=== PATIENT | female | born 1990 | race Caucasian/White ===

== ENCOUNTER 2025-01-21 08:53 | Outpatient (AMB) | payer BC, SELFPAY ==
--- OUTSIDE RECORDS SUMMARY | 2025-01-10 11:30 | XMS_ITS | Encounter Summary ---
Author Organization [facility] Address [address] [place] [address] Care Team Providers Care Information Operator Name Role Phone Rafita Cook APRN Primary Care Provider [phone] Reason for Visit * Diagnostic Imaging (Emergency) - Closed Specialty Diagnoses / Procedures Referred By Ivana titus Referred To Contact Diagnoses Lumbar radiculopathy Procedures MRI Lumbar spine w/o contrast Rudolph Asher MD [address] [place] [address] Phone: tel: fax: Referral ID Status Reason Start Date Expiration Date Visits Re quested Visits Authorized [id number] Closed 12/25/2024 12/26/2025 1 1 Encounter Details Date Type Department Care Team (Latest Contact Info) Description 01/10/2025 11:30 AM EDT Ancillary Procedure [facility] [address] [place] [phone] Lumbar radiculopathy Social History Tobacco Use Types Packs/Day Years Used Date Smoking Tobacco: Never Smokeless Tobacco: Never Alcohol Use Standard Drinks/Week Comments Not Currently 1 (1 standard drink = 0.6 oz pure alcohol) Most weeks none, approximately 1x/month 2-4 drinks Comments Unknown Sex and Gender Information Value Date Recorded Sex Assigned at Female 12/27/2023 9:26 AM EDT Legal Sex Female 9:25 AM EDT Gender Identity Female 12/27/2023 9:26 AM EDT Sexual Orientation Heterosexual (straight) 12/26 9:44 PM EDT documented as of this encounter Plan of Treatment Upcoming Encounters Date Type Department Care Team (Late st Contact Info) Description 01/30/2025 1:00 PM EDT Procedure visit [facility] Department of Nephrology and Access Surgery [place] [address] [place] [phone] Rudolph Asher MD [address] [place] [address] 02/13/2025 3:00 PM EDT Office Visit [facility] Department of Internal Medicine [place] [address] [place] [phone] Rafita Cook APRN [address] [place] [address] 02/18/2025 1:00 PM EDT Office Visit [facility] Department of Pain [place] [id number] [place] [phone] Rudolph Asher MD [address] [place] [address] documented as of this encounter Procedures Procedure Name Priority Date/Time Associated Diagnosis Comments MRI LUMBAR SPINE W/O CONTRAST STAT 01/10/2025 12:03 PM EDT Lumbar radiculopathy documented in this encounter Results * MRI Lumbar spine w/o contrast (01/10/2025 12:03 PM EDT) Anatomical Region Laterality Modality L-spine Magnetic Resonan ce 01/10/2025 12:0 5 PM EDT Impressions 01/10/2025 12:17 PM EDT The mild to moderate L4-L5 disc herniation demonstrated on prior exam is now substantially larger, with severe central stenosis and right lateral recess compromise. No new abnormalities at the other lumbar levels. A Significant finding has been communicated to Radiology Pyrometallurgical Engineer for provider notification via the [employer] Findings Application on 01/10/2025 12:17 PM, Message ID [id number]. Narrative 01/10/2025 12:17 PM EDT TECHNIQUE: MRI of lumbar spine without contrast. Comparison 12/25/2024 x-rays, MRI 07/17/2024. FINDINGS: L4-L5 disc herniation demonstrated on the June MRI is now substantially larger, with extruded disc material occupying much of the cross-sectional diameter of the spinal canal at the disc level, and extending distally in the midline and right central plane almost to the inferior L5 endplate level. Normal lumbar alignment is maintained. Normal vertebral body heights and signal. Small incidental L1 hemangioma is unchanged. Conus is normal. Cauda equina normal except for compression at the L4-L5 level. Lower thoracic and upper lumbar disc levels are normal. Slight loss of disc height at L3-L4, mild left central disc protrusion. No stenosis. Moderate disc space narrowing at L4-L5. Normal facet joints. Foramina are not significantly narrowed. Normal disc height at L5-S1. Small central disc protrusion. No stenosis. Paraspinal soft tissues are normal. Procedure Note Juni Stevens MD - 01/10/2025 TECHNIQUE: MRI of lumbar spine without contrast. Comparison 12/25/2024 x-rays, MRI 07/17/2024. FINDINGS: L4-L5 disc herniation demonstrated on the June MRI is now substantiallylarger, with extruded disc material occupying much of the cross-sectionaldiameter of the spinal canal at the disc level, and extending distally inthe midline and right central plane almost to the inferior L5 endplate level. Normal lumbar alignment is maintained. Normal vertebral body heights andsignal. Small incidental L1 hemangioma is unchanged. Conus is normal. Cauda equina normal except for compression at the L4-W6axlez. Lower thoracic and upper lumbar disc levels are normal. Slight loss of disc height at L3-L4, mild left central disc protrusion. Nostenosis. Moderate disc space narrowing at L4-L5. Normal facet joints. Foramina arenot significantly narrowed. Normal disc height at L5-S1. Small central disc protrusion. No stenosis. Paraspinal soft tissues are normal. IMPRESSION: The mild to moderate L4-L5 disc herniation demonstrated on prior exam isnow substantially larger, with severe central stenosis and right lateralrecess compromise. No new abnormalities at the other lumbar levels. A Significant finding has been communicated to Radiology Pyrometallurgical Engineer forprovider notification via the [employer] FindingsApplication on 01/10/2025 12:17 PM, Message ID [id number]. Rudolph Asher MD IMG MRI ORDERABLES Final Result documented in this encounter Visit Diagnoses Diagnosis Lumbar radiculopathy Thoracic or lumbosacral neuritis or radiculitis, unspecified documented in this encounter Care Teams Information Operator Relationship Specialty Start Date End Date Rafita Cook APRN [address] [place] [address] PCP - General Internal Medicine 07/24/24 documented as of this encounter
[2025-01-21 09:04] VITALS: BMI 30.9
--- NOTE | 2025-01-21 09:04 | HO.SPINEOV ---
Vital Signs 01/21/25 09:04 Height 5 ft 4 in Weight 180 lb BMI 30.9 Intake Visit Reasons: LBP L4-L5 Intake Note: Ms. Dixon is here today c/o Low back pain that radiate to buttocks, hips and right leg, causing numbness. 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 Required: No Allergies No Known Allergies Allergy (Verified 01/21/25 09:05) Physical Exam Vital Signs: BMI result Body Mass Index 30.9 Assessment & Plan Assessment & Plan (1) Lumbar disc herniation: Code(s): M51.26 - Other intervertebral disc displacement, lumbar region Category: Medical Plan This is a very nice 35-year-old female who has had on and off back issues since she was a teenager, who had a known smaller disc herniation/disc bulge at L4-5 which she was treating conservatively this year with things like physical therapy, and it was otherwise at her baseline until sometime in November when she was mowing her lawn and noticed the next day an intense pain in her back as well as numbness of her right leg. This ultimately transition to severe bilateral lower extremity nerve pain, right greater than left that goes all the way down to her feet. At 1 point during the process she was completely incapacitated by the pain and unable to walk. She has seen a surgeon in [place], has been to a pain management center, undergone physical therapy. She even underwent an injection. Nothing seems to be helping at this point. She is considering surgery with Dr. Thompson, but wanted a 2nd opinion so came to see us today. She tells me that the pain is intense but becomes more manageable with gabapentin. She is also taking high dose Motrin. Walking still continues to be a significant issue, she is very unsteady on her feet, has tremendous difficulty going up and downstairs. She has had some vaginal numbness along the right side and on the right side of her buttock. She reports 1 episode of borderline incontinence with stool, but generally is able to control it. Similarly with her bladder there some urgency there but she has never had barney incontinence where she was unable to sense it or control it. The pain has been so intense that she has gone to the point of buying a wheelchair if she has to go longer distances. She had an MRI done showing significant increase in the size of the herniated disc at L4-5. PMH: She is otherwise healthy denies any systemic disease. She has had wisdom teeth removal and tonsillectomy. Social hx: She has not smoke, drink use any recreational drugs Medications: Gabapentin, sertraline ibuprofen and Zepbound Allergies: None Physical exam: Awake alert oriented, she is uncomfortable getting up on the examining table by herself, she is unsteady and appears to be in pain. Walking down the hallway she has an antalgic gait in his unsteady with tandem gait walking. She has pain with hip flexion and positive straight leg raise at about 30 degrees. Motor examination reveals weakness of her right tibialis and her right peroneus longus/brevis. Reflexes 2+ at the patella but absent at the Achilles bilaterally. Imaging review: Lumbar MRI done at an outside facility, as well as standing flexion extension x-rays reviewed. This shows a large herniated disc fragment at L4-5. It appears to have herniated out from the left side and there is a small distal fragment down behind the right side of the L5 vertebral body as well. It completely fills the spinal canal and obliterates all the passing nerve roots. Impression: 35-year-old female presents with a large herniated disc at L4-5 which is completely filling the spinal canal, giving her back pain, bilateral lower extremity pain right greater than left with weakness of her right foot, pain and instability with walking as well as some early signs of sacral nerve root impingement expressing themselves as vaginal numbness. No barney incontinence. She is able to sense when she has to go to the bathroom, and can empty her bladder. We reviewed her imaging together, I expressed my concern her that this would need surgery to fix given the amount of pain she is in as well as the signs of neurological weakness and some borderline cauda equina type symptoms. She had x-rays done at the doctor she saw jessi Putnam and there maybe some slight translation of L4 and L5 with standing and flexion. It is possible she may need more than just a simple microdiskectomy, which would be the traditional treatment of this. I am going to review the images with Dr. Coto to see if he thinks this needs fusion or if we can just treat it with removing the large herniated fragment. I will call her and update her with the plan once I talked to him. We also talked about the fact that if she develops true cauda equina symptoms she needs to go to the emergency room to be treated with with surgical intervention. Thank you for allowing us to care for your patient. The total time spent with this visit with this patient was 45 minutes reviewing history, physical exam, lumbar imaging review, and implementation of treatment plan or further diagnostic testing Niels Coto MD,PhD [facility] [place] Coding Level of Care Code New Pt Level 4 (77562) Diagnoses Lumbar disc herniation M51.26
--- OUTSIDE RECORDS SUMMARY | 2025-01-21 10:17 | XMS_ITS | Encounter Summary ---
Author Organization [facility] Address [address] [place] [address] Care Team Providers Care Eastern Philosophy Professor Name Role Phone Rafita Cook APRN Primary Care Provider [phone] Encounter Details Date Type Department Care Team (Late st Contact Info) Description 03/15/2024 Scanned Document [facility] Department of Internal Medicine [place] [address] [place] [phone] Joyce RafitaSHITAL [address] [place], [place] [phone] Social History Tobacco Use Types Packs/Day Years [...] Description 01/30/2025 1:00 PM EDT Procedure visit [facility] Department of Nephrology and Access Surgery [place] [address] [place] [phone] Rudolph Asher MD [address] [place] [address] 02/13/2025 3:00 PM EDT Office Visit [facility] Department of Internal Medicine [place] [address] [place] [address] Rafita Cook APRN [address] [place] [address] 02/18/2025 1:00 PM EDT Office Visit [facility] Department of Pain [address] [phone] Rudolph Asher MD [address] [place] [address] documented as of this encounter Visit Diagnoses Not on filedocumented in this encounter Care Teams Eastern Philosophy Professor Relationship Specialty Start Date End Date Rafiat Cook APRN [address] [place] [address] PCP - General Internal Medicine 07/24/24 documented as of this encounter
--- OUTSIDE RECORDS SUMMARY | 2025-01-21 10:17 | XMS_ITS | Encounter Summary ---
Author Organization [facility] Address [address] [place] [address] Care Team Providers Care Death Surveys Coder Name Role Phone Rafita Cook APRN Primary Care Provider [phone] Encounter Details Date Type Department Care Team (Late st Contact Info) Description 10/26/2024 Scanned Document [facility] Department of Pain [address] [phone] Rudolph Asher MD [address] [place] [address] Social History Tobacco Use Types Packs/Day Years [...] Physicians Department of Nephrology and Access Surgery [address] [phone] Rudolph Asher MD [address] [place] [address] 02/13/2025 3:00 PM EDT Office Visit [facility] Department of Internal Medicine [address] [phone] Rafita Cook APRN [address] [place] [address] 02/18/2025 1:00 PM EDT Office Visit [facility] Department of Pain [address] [phone] Rudolph Asher MD [address] [place] [address] documented as of this encounter Visit Diagnoses Not on filedocumented in this encounter Care Teams Death Surveys Coder Relationship Specialty Start Date End Date Rafita Cook APRN [address] [place] [address] PCP - General Internal Medicine 07/24/24 documented as of this encounter
--- OUTSIDE RECORDS SUMMARY | 2025-01-21 10:17 | XMS_ITS | Encounter Summary ---
Author Organization [facility] Address [address] [place] [address] Care Team Providers Care Plug Shaper Hand Name Role Phone Rafita Cook APRN Primary Care Provider [phone] Encounter Details Date Type Department Care Team (Late Contact Info) Description 01/10/2025 Telephone [facility] Department of Orthopaedics & Sports Medicine [address] [phone] Rudolph Asher MD [address] [place] [address] Social History Tobacco Use Types Packs/Day Years [...] Encounters Date Type Department Care Team (Late Contact Info) Description 01/30/2025 1:00 PM EDT Procedure visit [facility] Department of Nephrology and Access Surgery [address] [phone] Rudolph Asher MD [address] [place] [address] 02/13/2025 3:00 PM EDT Office Visit [facility] Department of Internal Medicine [place] [address] [place] [address] Rafita Cook APRN [address] [place] [address] 02/18/2025 1:00 PM EDT Office Visit [facility] Department of Pain [address] [phone] Rudolph Asher MD [address] [place] [address] documented as of this encounter Visit Diagnoses Not on filedocumented in this encounter Care Teams Plug Shaper Hand Relationship Specialty Start Date End Date Rafita Cook APRN [address] [place] [address] PCP - General Internal Medicine 07/24/24 documented as of this encounter
--- OUTSIDE RECORDS SUMMARY | 2025-01-21 10:17 | XMS_ITS | Encounter Summary ---
Author Organization [facility] Address [address] [place] [address] Care Team Providers Care Corking Machine Operator Name Role Phone Rafita Cook APRN Primary Care Provider [phone] Encounter Details Date Type Department Care Team (Late st Contact Info) Description 07/13/2024 Scanned Document [facility] Department of Internal Medicine [place] [address] [place] [phone] Joyce RafitaSHITAL [address] [place], [place] [phone] Social History Tobacco Use Types Packs/Day Years [...] Physicians Department of Nephrology and Access Surgery [place] [address] [place] [phone] Rudolph Asher MD [address] [place] [address] 02/13/2025 3:00 PM EDT Office Visit [facility] Department of Internal Medicine [place] [address] [place] [address] Rafita Cook APRN [address] [place] [address] 02/18/2025 1:00 PM EDT Office Visit [facility] Department of Pain [address] [phone] Rudolph Asher MD [address] [place] [address] documented as of this encounter Visit Diagnoses Not on filedocumented in this encounter Care Teams Corking Machine Operator Relationship Specialty Start Date End Date Rafita Cook APRN [address] [place] [address] PCP - General Internal Medicine 07/24/24 documented as of this encounter
--- OUTSIDE RECORDS SUMMARY | 2025-01-21 10:17 | XMS_ITS | Encounter Summary ---
Author Organization [facility] Address [address] [place] [address] Care Team Providers Care Agriscience Instructor Name Role Phone Rafita Cook APRN Primary Care Provider [phone] Encounter Details Date Type Department Care Team (Late st Contact Info) Description 11/01/2024 Scanned Document [facility] Department of Pain [address] [phone] Rudolph Asher MD [address] [place] [address] Social History Tobacco Use Types Packs/Day Years [...] Physicians Department of Nephrology and Access Surgery [address] [phone] Ruodlph Asher MD [address] [place] [address] 02/13/2025 3:00 PM EDT Office Visit [facility] Department of Internal Medicine [address] [phone] Rafita Cook APRN [address] [place] [address] 02/18/2025 1:00 PM EDT Office Visit [facility] Department of Pain [address] [phone] Rudolph Asher MD [address] [place] [address] documented as of this encounter Visit Diagnoses Not on filedocumented in this encounter Care Teams Agriscience Instructor Relationship Specialty Start Date End Date Rafita Cook APRN [address] [place] [address] PCP - General Internal Medicine 07/24/24 documented as of this encounter
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
--- OUTSIDE RECORDS SUMMARY | 2025-01-21 10:17 | XMS_ITS | Encounter Summary ---
Author Organization [facility] Address [address] [place] [address] Care Team Providers Care Reducing Machine Operator Name Role Phone Rafita Cook APRN Primary Care Provider [phone] Encounter Details Date Type Department Care Team (Late st Contact Info) Description 12/04/2024 Scanned Document [facility] Department of Pain [address] [address] Rudolph Asher MD [address] [place] [address] Social History Tobacco Use Types Packs/Day Years [...] [facility]icians Department of Nephrology and Access Surgery [address] [phone] Rudolph Asher MD [address] [place] [address] 02/13/2025 3:00 PM EDT Office Visit [facility] Department of Internal Medicine [address] [address] Rafita Cook APRN [address] [place] [address] 02/18/2025 1:00 PM EDT Office Visit [facility] Department of Pain [address] [phone] Rudolph Asher MD [address] [place] [address] documented as of this encounter Visit Diagnoses Not on filedocumented in this encounter Care Teams Reducing Machine Operator Relationship Specialty Start Date End Date Rafita Cook APRN [address] [place] [address] PCP - General Internal Medicine 07/24/24 documented as of this encounter
--- OUTSIDE RECORDS SUMMARY | 2025-01-21 10:17 | XMS_ITS | Encounter Summary ---
Author Organization [facility] Address [address] [place] [address] Care Team Providers Care Registered Respiratory Technician Name Role Phone Rafita Cook APRN Primary Care Provider [phone] Encounter Details Date Type Department Care Team (Late st Contact Info) Description 10/09/2024 Scanned Document [facility] Department of Internal Medicine [place] [address] [place] [phone] Joyce RafitaSHITAL [address] [place], [place] [phone] Social History Tobacco Use Types Packs/Day Years [...] Physicians Department of Nephrology and Access Surgery [place] [address] [place] [phone] Rudolph Asher MD [address] [place] [address] 02/13/2025 3:00 PM EDT Office Visit [facility] Department of Internal Medicine [place] [address] [place] [address] Rafita Cook APRN [address] [place] [address] 02/18/2025 1:00 PM EDT Office Visit [facility] Department of Pain [address] [phone] Rudolph Asher MD [address] [place] [address] documented as of this encounter Visit Diagnoses Not on filedocumented in this encounter Care Teams Registered Respiratory Technician Relationship Specialty Start Date End Date Rafita Cook APRN [address] [place] [address] PCP - General Internal Medicine 07/24/24 documented as of this encounter
--- OUTSIDE RECORDS SUMMARY | 2025-01-21 10:17 | XMS_ITS | Encounter Summary ---
Author Organization [facility] [place] [facility] Address [address] [place] [address] Care Team Providers Care Ammunition Storage Superintendent Name Role Phone Rafita Cook APRN Primary Care Provider [phone] Encounter Details Date Type Department Care Team (Late st Contact Info) Description 12/28/2024 Scanned Document [facility] Department of Pain [address] [address] Rudolph Asher MD [address] [place] [address] Social History Tobacco Use Types Packs/Day Years [...] Physicians Department of Nephrology and Access Surgery [address] [phone] Ruodlph Asher MD [address] [place] [address] 02/13/2025 3:00 PM EDT Office Visit [facility] Department of Internal Medicine [address] [address] Rafita Cook APRN [address] [place] [address] 02/18/2025 1:00 PM EDT Office Visit [facility] Department of Pain [address] [phone] Rudolph Asher MD [address] [place] [address] documented as of this encounter Visit Diagnoses Not on filedocumented in this encounter Care Teams Ammunition Storage Superintendent Relationship Specialty Start Date End Date Rafita Cook APRN [address] [place] [address] PCP - General Internal Medicine 07/24/24 documented as of this encounter
--- OUTSIDE RECORDS SUMMARY | 2025-01-21 10:17 | XMS_ITS | Encounter Summary ---
Author Organization [facility] Address [address] [place] [address] Care Team Providers Care Semiconductor Technician Name Role Phone Rafita Cook APRN Primary Care Provider [phone] Encounter Details Date Type Department Care Team (Late st Contact Info) Description 10/15/2024 Scanned Document [facility] Department of Internal Medicine [place] [address] [place] [phone] Joyce RafitaSHITAL [address] [place], [place] [phone] Social History Tobacco Use Types Packs/Day Years [...] Physicians Department of Nephrology and Access Surgery [place] [address] [place] [phone] Rudolph Asher MD [address] [place] [address] 02/13/2025 3:00 PM EDT Office Visit [facility] Department of Internal Medicine [place] [address] [place] [address] Rafita Cook APRN [address] [place] [address] 02/18/2025 1:00 PM EDT Office Visit [facility] Department of Pain [address] [phone] Rudolph Asher MD [address] [place] [address] documented as of this encounter Visit Diagnoses Not on filedocumented in this encounter Care Teams Semiconductor Technician Relationship Specialty Start Date End Date Rafita Cook APRN [address] [place] [address] PCP - General Internal Medicine 07/24/24 documented as of this encounter
--- OUTSIDE RECORDS SUMMARY | 2025-01-21 10:17 | XMS_ITS | Encounter Summary ---
Author Organization [facility] [place] [facility] Address [address] [place] [address] Care Team Providers Care Practice Managers Name Role Phone Rafita Cook APRN Primary Care Provider [phone] Encounter Details Date Type Department Care Team (Late st Contact Info) Description 09/13/2024 Scanned Document [facility] Department of Internal Medicine [place] [address] [place] [phone] Joyce RafitaSHITAL [address] [place], [place] [phone] Social History Tobacco Use Types Packs/Day Years [...] Physicians Department of Nephrology and Access Surgery [place] [address] [place] [phone] Rudolph Asher MD [address] [place] [address] 02/13/2025 3:00 PM EDT Office Visit [facility] Department of Internal Medicine [place] [address] [place] [address] Rafita Cook APRN [address] [place] [address] 02/18/2025 1:00 PM EDT Office Visit [facility] Department of Pain [address] [phone] Rudolph Asher MD [address] [place] [address] documented as of this encounter Visit Diagnoses Not on filedocumented in this encounter Care Teams Practice Managers Relationship Specialty Start Date End Date Rafita Cook APRN [address] [place] [address] PCP - General Internal Medicine 07/24/24 documented as of this encounter
--- OUTSIDE RECORDS SUMMARY | 2025-01-21 10:17 | XMS_ITS | Encounter Summary ---
Author Organization [facility] Address [address] [place] [address] Care Team Providers Care Hoisting Pile Driving Engineer Name Role Phone Rafita Cook APRN Primary Care Provider [phone] Encounter Details Date Type Department Care Team (Late st Contact Info) Description 11/23/2024 Scanned Document [facility] Department of Nephrology and Access Surgery [address] [phone] Rudolph Asher MD [address] [place] [address] Social History Tobacco Use Types Packs/Day Years [...] Physicians Department of Nephrology and Access Surgery [address] [phone] Rudolph Asher MD [address] [place] [address] [phone] 02/13/2025 3:00 PM EDT Office Visit [facility] Department of Internal Medicine [place] [address] [place] [address] Rafita Cook APRN [address] [place] [address] 02/18/2025 1:00 PM EDT Office Visit [facility] Department of Pain [address] [phone] Rudolph Asher MD [address] [place] [address] documented as of this encounter Visit Diagnoses Not on filedocumented in this encounter Care Teams Hoisting Pile Driving Engineer Relationship Specialty Start Date End Date Rafita Cook APRN [address] [place] [address] PCP - General Internal Medicine 07/24/24 documented as of this encounter
--- OUTSIDE RECORDS SUMMARY | 2025-01-21 10:17 | XMS_ITS | Encounter Summary ---
Author Organization [facility] Address [address] [place] [address] Care Team Providers Care Sales Management Trainee Name Role Phone Rafita Cook APRN Primary Care Provider [phone] Encounter Details Date Type Department Care Team (Late st Contact Info) Description 07/12/2024 Scanned Document Rod [facility] Department of Internal Medicine [place] [address] [place] [phone] [facility] [address] [place], [place] [phone] Social History Tobacco Use Types Packs/Day Years [...] Physicians Department of Nephrology and Access Surgery [place] [address] [place] [phone] Rudolph Asher MD [address] [place] [address] 02/13/2025 3:00 PM EDT Office Visit [facility] Department of Internal Medicine [place] [address] [place] [address] Rafita Cook APRN [address] [place] [address] 02/18/2025 1:00 PM EDT Office Visit [facility] Department of Pain [address] [phone] Rudolph Asher MD [address] [place] [address] documented as of this encounter Visit Diagnoses Not on filedocumented in this encounter Care Teams Sales Management Trainee Relationship Specialty Start Date End Date Rafita Cook APRN [address] [place] [address] PCP - General Internal Medicine 07/24/24 documented as of this encounter
--- OUTSIDE RECORDS SUMMARY | 2025-01-21 10:17 | XMS_ITS | Clinical Summary ---
Author Organization [facility] Address [address] [facility] Rose Garcia tresa [address] [place] [address] Care Team Providers Care Gum Scoring Machine Operator Name Role Phone Unavailable Primary Care Provider Unavailabl e Social History Tobacco Use Types Packs/Day Years Used Date Smoking Tobacco: Never Assessed Comments Unknown Sex and Gender Information Value Date Recorded Sex Assigned at Female 01/14/2025 3:15 PM EDT Legal Sex Female 3:12 PM EDT Gender Identity Female 01/14/2025 3:15 PM EDT Sexual Orientation Unknown 01/14/2025 3: 15 PM EDT Plan of Treatment Upcoming Encounters Date Type Department Care Team (Late st Contact Info) Description 01/30/2025 3:00 PM EDT Office Visit [facility] Neurosurgery [address] [phone] Eros Case MD [address] [place] [phone] Health Maintenance Due Date Last Done Comments HIV Screening 1990 MMR Vaccines (1 of 1 - Stand coby series) 01/20/1989 Varicella Vaccines (1 of 2 - 13+ 2-dose series) 01/20/2001 Hepatitis C Screening 01/20/2006 DTaP/Tdap/Td Vaccines (1 - Tdap) 01/20/2007 Hepatitis B Vaccines (1 of 3 - 19+ 3-dose series) 01/20/2007 Pap Smear 01/20/2009 HPV Vaccines (1 - 3-dose SCD M series) 01/20/2015 Cervical Cancer Screening 01/20/2018 HPV/Cotest 01/20/2018 Depression Screening 05/02/2024 COVID-19 Vaccine ( - 2023-2 5 season) 2024 Influenza Vaccine (#1) 2024 01/11/2024 Lipid Panel 06/27/2029 06/27/2024 HIB Vaccines Aged Out No longer eligi ble based on patient's age to complete this topic Hepatitis A Vaccines Aged Out No long er eligible based on patient's age to complete this topic IPV Vaccines Aged Out No longer eligi ble based on patient's age to complete this topic Meningococcal B Vaccine Aged Out No l onger eligible based on patient's age to complete this topic Meningococcal Vaccine Aged Out No marlyn andrew eligible based on patient's age to complete this topic Pneumococcal Vaccine: Pediat rics (0 to 5 Years) and At-Risk Patients (6 to 49 Years) Aged Out No longer eligi ble based on patient's age to complete this topic Rotavirus Vaccines Aged Out No longer eligible based on patient's age to complete this topic Insurance [facility]
--- OUTSIDE RECORDS SUMMARY | 2025-01-21 10:17 | XMS_ITS | Encounter Summary ---
Author Organization [facility] Address [address] [place] [address] Care Team Providers Care Bite Block Maker Name Role Phone Rafita Cook APRN Primary Care Provider [phone] Encounter Details Date Type Department Care Team (Late st Contact Info) Description 12/04/2024 Scanned Document [facility] Department of Orthopaedics & Sports Medicine [address] [phone] Rudolph Asher MD [address] [place] [address] Social History Tobacco Use Types Packs/Day Years [...] Physicians Department of Nephrology and Access Surgery [address] [phone] Rudolph Asher MD [address] [place] [address] 02/13/2025 3:00 PM EDT Office Visit [facility] Department of Internal Medicine [place] [address] [place] [address] Rafita Cook APRN [address] [place] [address] 02/18/2025 1:00 PM EDT Office Visit [facility] Department of Pain [address] [phone] Rudolph Asher MD [address] [place] [address] documented as of this encounter Visit Diagnoses Not on filedocumented in this encounter Care Teams Bite Block Maker Relationship Specialty Start Date End Date Rafita Cook APRN [address] [place] [address] PCP - General Internal Medicine 07/24/24 documented as of this encounter
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
--- OUTSIDE RECORDS SUMMARY | 2025-01-21 10:17 | XMS_ITS | Encounter Summary ---
Author Organization [facility] Address [address] [place] [address] Care Team Providers Care Parking Regulation Enforcement Officer Name Role Phone Rafita Cook APRN Primary Care Provider [phone] Encounter Details Date Type Department Care Team (Late st Contact Info) Description 07/19/2024 Scanned Document [facility] Department of Internal Medicine [place] [address] [place] [phone] Joyce [facility] [address] [place], [place] [phone] Social History Tobacco Use Types Packs/Day Years [...] Physicians Department of Nephrology and Access Surgery [place] [address] [place] [phone] Rudolph Asher MD [address] [place] [address] 02/13/2025 3:00 PM EDT Office Visit [facility] Department of Internal Medicine [place] [address] [place] [address] Rafita Cook APRN [address] [place] [address] 02/18/2025 1:00 PM EDT Office Visit [facility] Department of Pain [address] [phone] Rudolph Asher MD [address] [place] [address] documented as of this encounter Visit Diagnoses Not on filedocumented in this encounter Care Teams Parking Regulation Enforcement Officer Relationship Specialty Start Date End Date Rafita Cook APRN [address] [place] [address] PCP - General Internal Medicine 07/24/24 documented as of this encounter
--- OUTSIDE RECORDS SUMMARY | 2025-01-21 10:17 | XMS_ITS | Encounter Summary ---
Author Organization [facility] Address [address] [place] [address] Care Team Providers Care Family Preservation Caseworker Name Role Phone Rafita Cook APRN Primary Care Provider [phone] Encounter Details Date Type Department Care Team (Late st Contact Info) Description 09/13/2024 Scanned Document Rod [facility] Department of Internal Medicine [place] [address] [place] [phone] Joyce [facility] [address] [place], [place] [phone] Social History Tobacco Use Types Packs/Day Years [...] Physicians Department of Nephrology and Access Surgery [place] [address] [place] [phone] Rudolph Asher MD [address] [place] [address] 02/13/2025 3:00 PM EDT Office Visit [facility] Department of Internal Medicine [place] [address] [place] [address] Rafita Cook APRN [address] [place] [address] 02/18/2025 1:00 PM EDT Office Visit [facility] Department of Pain [address] [phone] Rudolph Asher MD [address] [place] [address] documented as of this encounter Visit Diagnoses Not on filedocumented in this encounter Care Teams Family Preservation Caseworker Relationship Specialty Start Date End Date Rafita Cook APRN [address] [place] [address] PCP - General Internal Medicine 07/24/24 documented as of this encounter
--- OUTSIDE RECORDS SUMMARY | 2025-01-21 10:17 | XMS_ITS | Encounter Summary ---
Author Organization [facility] Address [address] [place] [address] Care Team Providers Care Skull Grinder Name Role Phone Rafita Cook APRN Primary Care Provider [phone] Encounter Details Date Type Department Care Team (Late st Contact Info) Description 10/23/2024 Scanned Document [facility] Department of Orthopaedics & Sports Medicine [address] [phone] Rudolph Asher MD [address] [place] [address] Social History Tobacco Use Types Packs/Day Years [...] Department of Nephrology and Access Surgery [address] [phone] Rudolph Asher MD [address] [place] [address] 02/13/2025 3:00 PM EDT Office Visit [facility] Department of Internal Medicine [place] [address] [place] [address] Rafita Cook APRN [address] [place] [address] 02/18/2025 1:00 PM EDT Office Visit [facility] Department of Pain [address] [phone] Rudolph Asher MD [address] [place] [address] documented as of this encounter Visit Diagnoses Not on filedocumented in this encounter Care Teams Skull Grinder Relationship Specialty Start Date End Date Rafita Cook APRN [address] [place] [address] PCP - General Internal Medicine 07/24/24 documented as of this encounter
--- OUTSIDE RECORDS SUMMARY | 2025-01-21 10:17 | XMS_ITS | Clinical Summary ---
Author Organization [facility] Address [address] [place] [phone] Phone Care Team Providers Care Laborer General Name Role Phone Unknown, Unknown Primary Care Provider Jonn lable Allergies No known active allergies Medications clonazePAM (KLONOPIN) 0.5 MG tablet 05/02/2015 Active KASH, 28, 3-0.02 mg per tablet Take 1 tablet by mouth daily. 3 packet 4 08/01/2020 Active sertraline (ZOLOFT) 100 MG tabletIndicatio ns:Depression Take 2 tablets (200 mg total) by mouth daily. 30 tablet 6 08/15/2020 Active Social History Tobacco Use Types Packs/Day Years Used Date Smoking Tobacco: Never Smokeless Tobacco: Never Alcohol Use Standard Drinks/Week Comments Not Currently 0 (1 standard drink = 0.6 oz pur e alcohol) Education Answer Date Recorded Are you interested in more education? Not on ashley e 08/27/2022 Are you concerned about learning? Not on file 08/27/2022 No 08/27/2022 No 08/27/2022 Digital Access Answer Date Recorded No 09/25/2022 No 09/25/2022 No 09/25/2022 Reliable internet access at home? Not on file 09/25/2022 Device with a working camera? Not on file Comments Unknown Sex and Gender Information Value Date Recorded Sex Assigned at Female 03/04/2020 10:48 AM EST Legal Sex Female 10:40 AM EST Gender Identity Female 03/04/2020 10:48 AM EST Sexual Orientation Straight 03/04/2020 10 :48 AM EST Last Filed Vital Signs Vital Sign Reading Time Taken Comments Blood Pressure 120/80 08/01/2020 4:13 PM EDT Pulse - - Temperature - - Respiratory Rate - - Oxygen Saturation - - Inhaled Oxygen Concentration - - Weight 106.6 kg (235 lb) 08/01/2020 4:13 PM EDT Height 162.6 cm (5' 4 ) 08/01/2020 4:13 PM EDT Body Mass Index 40.34 08/01/2020 4:13 PM EDT Plan of Treatment Health Maintenance Due Date Last Done Comments Adult Td,Tdap Booster 1990 DEPRESSION SCREENING 2000 HEPATITIS C SCREENING 01/20/2006 HIV ONE-TIME SCREENING (18-6 5 YEARS) 01/20/2006 SMOKING STATUS SCREENING (On ce After 26 Yrs) 01/20/2014 PAP SMEAR 08/02/2023 08/01/2020, 08/01/2020 INFLUENZA VACCINE (#1) 2024 0, 01/01/2020, 02/13/2018 COVID-19 VACCINE (3 2024-2 6 season) 2024 09/07/2020, 08/17/2020 HEPATITIS A VACCINES Aged Out No long er eligible based on patient's age to complete this topic HIB VACCINES Aged Out No longer eligi ble based on patient's age to complete this topic MENINGOCOCCAL VACCINES (ACWY) Aged Out No longer eligible based on patient's age to complete this topic MENINGOCOCCAL VACCINES (B) Aged Out N o longer eligible based on patient's age to complete this topic PNEUMOCOCCAL VACCINES (0-49 years) Aged Out No longer eligible b ased on patient's age to complete this topic Medical Devices Not on file Procedures Procedure Name Priority Date/Time Associated Diagnosis Comments PAP TEST Routine 08/01/2020 12:00 AM EDT from Last 3 Months or Most Recently Relevant to Health Maintenance Results * Pap Smear (08/01/2020 12:00 AM EDT) 08/01/2020 08/04/2020 9:3 6 AM EDT Narrative SEE NARRATIVE - 08/08/2020 6:03 PM EDT [facility] [address] [place] [address] TRACKMAN Cytology Report FINAL DIAGNOSIS A. CERVICAL, LIQUID BASED SPECIMEN: SPECIMEN ADEQUACY: Satisfactory for evaluation; transformation zone absent/insufficient. INTERPRETATION: NEGATIVE FOR INTRAEPITHELIAL LESION OR MALIGNANCY. This specimen was analyzed by the automated ThinPrep Imaging System (Clean TeQ.) and the selected browning were reviewed by a gypsum calciner. Electronically Signed Out By: AZRA Hawkins(ASCP) Cervical cytology is a screening test primarily for squamous cancers and precursors and has associated false-negative and false-positive results. New technologies such as liquid-based preparations may decrease but will not eliminate all false-negative results. Regular sampling and follow-up of unexplained clinical signs and symptoms are recommended to minimize false negative results. Interpretation of this material was performed at: [facility], Department of Pathology [address] [place] [address] Gasket Supervisor: Florentin Olivia M.D. CLINICAL HISTORY Date of Last Menstrual Period: Not Provided Treatment History: Hormone Therapy Other Clinical Conditions: Routine SPECIMEN SOURCE A: CERVICAL, LIQUID BASED SPECIMEN GROSS DESCRIPTION One ThinPrep vial received. Patient Name: DESTINY KAM : 1990 (Age: 30) Sex: F Institution: [facility] Location: [facility] Date of Collection: 08/01/2020 Date of Reported: 08/08/2020 18:03 Results to: John Weeks MD John Weeks MD CYTOLOGY ORDERABLES Final Result Performing Organization Address City/State/[facility] Co de Phone Number SEE NARRATIVE from Last 3 Months or Most Recently Relevant to Health Maintenance Insurance PPO EPO Care Teams Laborer General Relationship Specialty Start Date End Date Unknown, Unknown, MD PCP - General 07/14/20 Additional Source Comments The information contained in this document represents components of the legal health record. It is not the complete legal health record.[facility]
--- OUTSIDE RECORDS SUMMARY | 2025-01-21 10:18 | XMS_ITS | Clinical Summary ---
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 20 tablet 5 Active lidocaine (LIDODERM) 5 % patch Apply 1 patch topically 1 (one) time each day. Remove & discard patch within 12 hours or as directed by MD. 30 patch 5 01/29/20 25 Active predniSONE (DELTASONE) 20 mg tablet Take 2.5 tablets (50 mg total) by mouth 1 (one) time each day for 5 days. 13 each 5 12/28/19 25 diazePAM (VALIUM) 5 mg tablet Take 1 tablet (5 mg total) by mouth 2 (two) times a day for 2 doses. Max Daily Amount: 10 mg 2 each 5 12/31/19 25 Encounters Date Type Department Care Team Description 12/29/2024 7:57 PM EDT - 12/29/2024 9:59 PM EDT Emergency [facility] Emergency [address] [place] [id number] Toño Tucker DO Piriformis syndrome of right side (Primary Dx); Lumbosacral radiculopathy Discharge Disposition: Home or Self Care 12/22/2024 11:24 AM EDT - 12/22/2024 11:56 AM EDT Emergency [facility] Emergency [address] [place] [phone] Zac Gilmore MD Right sided sciatica (Primary Dx) Discharge Disposition: Home or Self Care from Last 3 Months Social History Tobacco Use Types Packs/Day Years Used Date Smoking Tobacco: Never Smokeless Tobacco: Never Tobacco Cessation:Counseling Given: Not Answered Comments Unknown Sex and Gender Information Value Date Recorded Sex Assigned at Not on file Legal Sex Female 11:39 AM EDT Gender Identity Not on file Sexual Orientation Not on file Obstetrics History Last Filed Vital Signs Vital Sign Reading Time Taken Comments Blood Pressure 115/87 12/29/2024 7:53 PM EDT Pulse 113 12/29/2024 7:53 PM EDT Temperature 36.9 C (98.4 F) 12/29/2024 7:53 PM EDT Respiratory Rate 18 12/29/2024 7:53 PM EDT Oxygen Saturation 96% 12/29/2024 7:53 PM EDT Inhaled Oxygen Concentration - - Weight 81.6 kg (180 lb) 12/29/2024 7:53 PM EDT Height 162.6 cm (5' 4 ) 12/29/2024 7:53 PM EDT Body Mass Index 30.9 12/29/2024 7:53 PM EDT Plan of Treatment Health Maintenance Due Date Last Done Comments DTaP,Tdap,and Td Vaccines (1 - Tdap) 01/20/2007 Hepatitis B Vaccines (1 of 3 - 19+ 3-dose series) 01/20/2007 Cervical Cancer Screening: P ap Smear 01/20/2009 Cholesterol Screening (Lipid Panel) 02/25/2024 HIV Screening 02/25/2024 Hepatitis C Screening 02/25/2024 Social Influencers of Health Screening 02/25/2024 Depression Screening 05/02/2024 COVID-19 Vaccine ( - 2023-2 5 season) 2024 Influenza Vaccine (#1) 2024 01/11/2024 RSV Immunization Adult Patie nts (1 - 1-dose 75+ series) 01/20/2063 HIB Vaccines Aged Out No longer eligi ble based on patient's age to complete this topic HPV Vaccines Aged Out No longer eligi ble based on patient's age to complete this topic Hepatitis A Vaccines Aged Out No long er eligible based on patient's age to complete this topic IPV Vaccines Aged Out No longer eligi ble based on patient's age to complete this topic MMR Vaccines Aged Out No longer eligi ble based on patient's age to complete this topic Meningococcal ACWY Vaccine Aged Out N o longer eligible based on patient's age to complete this topic Meningococcal B Vaccine Aged Out No l onger eligible based on patient's age to complete this topic Pneumococcal Vaccine: Pediat rics (0 to 5 Years) and At-Risk Patients (6 to 49 Years) Aged Out No longer eligi ble based on patient's age to complete this topic RSV Immunization Patients Un jing 20 months Aged Out No longer eligible b ased on patient's age to complete this topic Varicella Vaccines Aged Out No longer eligible based on patient's age to complete this topic Insurance Care Teams Rad[employer] Relationship Specialty Start Date End Date Rafita Cook FNP [facility] [place] [id number] PCP - General Internal Medicine 12/29/24
== END 2025-01-21 09:41 | disposition home or self-care (01) ==
PROVIDERS: PCP Urology; Visit Provider Physician Assistant
DX: M51.26 Other intervertebral disc displacement, lumbar region (principal)
CPT/HCPCS: 99204